=== PATIENT | male | born 1990 | race Caucasian/White ===

== ENCOUNTER 2017-11-11 11:55 | Emergency (ER) | payer MEDICAID ==
[2017-11-11] MEDS: IBUPROFEN 800 MG TAB PO (13:40)
== END 2017-11-11 15:00 | disposition home or self-care (01) ==
LOC: FTE 11:55
DX: S82.832A Other fracture of upper and lower end of left fibula, initial encounter for closed fracture (principal); S93.422A Sprain of deltoid ligament of left ankle, initial encounter; W01.0XXA Fall on same level from slipping, tripping and stumbling without subsequent striking against object, initial encounter; Y92.9 Unspecified place or not applicable
CPT/HCPCS: 29515; 73590; 73610; 99283-25